=== PATIENT | female | born 1970 | race Hispanic/Latino ===

== ENCOUNTER → 2018-10-28 | Outpatient (CLI) | payer OTHER | END | disposition home or self-care (01) | LOC: OIH 13:35 | DX: Z13.6 Encounter for screening for cardiovascular disorders (principal) | CPT/HCPCS: 75571 ==

== ENCOUNTER 2022-01-20 13:46 | Emergency (ER) | payer BC, OTHER ==
[~2022-01-20] VITALS: Ht 162.6 cm; Wt 61.2 kg
[2022-01-20 13:47] VITALS: BP 144/71
[2022-01-20 14:23] LABS: BASOPHILS % (AUTO) 0.6 % (0.0-5.0); EOSINOPHILS % (AUTO) 3.4 % (0.0-8.0); HEMATOCRIT 38.7 % (36-48); LYMPHOCYTES % (AUTO) 23.6 % (21.0-51.0); MEAN CORPUSCULAR HEMOGLOBIN 30.4 pg (27.0-33.0); MEAN CORPUSCULAR HGB CONC 33.1 g/dL (32.0-36.0); MEAN CORPUSCULAR VOLUME 91.9 fL (79-99); MONOCYTES % (AUTO) 6.1 % (3.0-13.0); NEUTROPHILS % (AUTO) 65.9 % (40.0-77.0); PLATELET COUNT (AUTO) 266 K/uL (130-400); RED BLOOD CELL COUNT(AUTO) 4.21 MIL/uL (4.00-5.50); RED CELL DISTRIBUTION WIDTH 12.5 % (11.0-15.5); WHITE BLOOD COUNT (AUTO) 5.2 K/uL (4.8-10.8)
[2022-01-20 14:35] LABS: CREATININE 0.7 mg/dL (0.5-1.5); POTASSIUM 3.5 mmol/L (3.5-5.1)
[2022-01-20 14:39] LABS: ALBUMIN 4.1 g/dL (3.5-5.0); BILIRUBIN,TOTAL 0.7 mg/dL (0.2-1.0); TOTAL PROTEIN, SERUM 7.3 g/dL (6.0-8.3)
[2022-01-20] MEDS ORDERED: IOHEXOL-350 75 ML VIAL IV ONE (15:57)
[2022-01-20] MEDS ORDERED: PANT40TA55 PO (16:52)
== END 2022-01-20 17:40 | disposition home or self-care (01) ==
LOC: EDH 13:46
DX: K21.9 Gastro-esophageal reflux disease without esophagitis (principal); Z90.710 Acquired absence of both cervix and uterus; Z98.890 Other specified postprocedural states
CPT/HCPCS: 36415; 70491; 80053; 81025; 85025; 99284; Q9967

== ENCOUNTER 2022-08-07 11:52 | Emergency (ER) | payer BC ==
[~2022-08-07] VITALS: Ht 162.6 cm; Wt 63.5 kg
[~2022-08-07 11:52] MED LIST: PANT40TA55 PO
[2022-08-07 12:04] VITALS: BP 132/84
[2022-08-07 12:32] LABS: APPEARANCE,URINE CLEAR (CLEAR); BILIRUBIN,URINE NEGATIVE (NEGATIVE); COLOR,URINE COLORLESS (YELLOW); GLUCOSE, URINE (UA) NEGATIVE (NEGATIVE); KETONES,URINE NEGATIVE (NEGATIVE); LEUKOCYTE ESTERASE ,URINE NEGATIVE Leu/uL (NEGATIVE); NITRATE,URINE NEGATIVE (NEGATIVE); OCCULT BLOOD,URINE NEGATIVE (NEGATIVE); PH,URINE 5.5 (5.0-8.0); PROTEIN,URINE NEGATIVE (NEGATIVE); UROBILINOGEN,URINE 0.2 mg/dL (0.2-1.0)
[2022-08-07 12:34] LABS: BASOPHILS % (AUTO) 0.5 % (0.0-5.0); EOSINOPHILS % (AUTO) 4.2 % (0.0-8.0); HEMATOCRIT 38.6 % (36-48); LYMPHOCYTES % (AUTO) 25.8 % (21.0-51.0); MEAN CORPUSCULAR HEMOGLOBIN 30.3 pg (27.0-33.0); MEAN CORPUSCULAR HGB CONC 33.2 g/dL (32.0-36.0); MEAN CORPUSCULAR VOLUME 91.3 fL (79-99); MONOCYTES % (AUTO) 7.3 % (3.0-13.0); NEUTROPHILS % (AUTO) 61.7 % (40.0-77.0); PLATELET COUNT (AUTO) 316 K/uL (130-400); RED BLOOD CELL COUNT(AUTO) 4.23 MIL/uL (4.00-5.50); RED CELL DISTRIBUTION WIDTH 12.8 % (11.0-15.5); WHITE BLOOD COUNT (AUTO) 5.5 K/uL (4.8-10.8)
[2022-08-07 13:02] LABS: INR 0.93 (0.85-1.15); PROTHROMBIN TIME 9.6 SEC (9.6-11.6)
[2022-08-07 13:13] LABS: CREATININE 0.7 mg/dL (0.5-1.5); POTASSIUM 3.7 mmol/L (3.5-5.1)
[2022-08-07] MEDS: MAG/ALUM/SIMETH 30 ML UDCUP PO ONE (13:19)
[2022-08-07] MEDS: LIDOCAINE HCL 2% VISCOUS 15 ML UDCUP PO ONE (13:19)
[2022-08-07] MEDS: FAMOTIDINE 20MG TAB PO ONE (13:19)
[2022-08-07 13:23] LABS: ALBUMIN 4.2 g/dL (3.5-5.0); TOTAL PROTEIN, SERUM 7.8 g/dL (6.0-8.3)
== END 2022-08-07 14:09 | disposition home or self-care (01) ==
LOC: EDH 11:52
DX: R07.89 Other chest pain (principal); K21.9 Gastro-esophageal reflux disease without esophagitis; F41.9 Anxiety disorder, unspecified; Z79.899 Other long term (current) drug therapy; Z98.890 Other specified postprocedural states
CPT/HCPCS: 36415; 71045; 80053; 81003; 84484; 85025; 85610; 93005

== ENCOUNTER 2023-07-16 19:17 | Emergency (ER) | payer BC, OTHER ==
[~2023-07-16] VITALS: Ht 162.6 cm; Wt 67.6 kg
[2023-07-16 21:05] LABS: SARS-CoV-2, RNA, NAAT NEGATIVE SARS CoV-2 (NEGATIVE)
[2023-07-16 21:10] LABS: INFLUENZA TYPE A Negative For Type A (NEGATIVE); INFLUENZA TYPE B Negative For Type B (NEGATIVE)
[2023-07-16] MEDS ORDERED: AMOX-426 PO (21:21)
[2023-07-16 21:39] VITALS: BP 136/76; PULSE 99; RESP 18; O2SAT 97
== END 2023-07-16 21:35 | disposition home or self-care (01) ==
LOC: EDH 19:17
DX: J02.0 Streptococcal pharyngitis (principal); J45.909 Unspecified asthma, uncomplicated; Z90.710 Acquired absence of both cervix and uterus; Z20.822 Contact with and (suspected) exposure to COVID-19
CPT/HCPCS: 99283; 87635; 87804 ×2; C9803

== ENCOUNTER 2023-08-05 09:19 | Emergency (ER) | payer OTHER ==
[~2023-08-05] VITALS: Ht 162.6 cm; Wt 68.5 kg
[~2023-08-05 09:19] MED LIST changes: +AMOX-426 PO
[2023-08-05 09:20] VITALS: BP 136/83
[2023-08-05] MEDS ORDERED: DEXAMETHASONE SOD PHOSPHATE 4 MG/ML 1ML VIAL IM ONE (10:00)
[2023-08-05] MEDS ORDERED: BUDESONIDE 0.5 MG/2 ML INH IH ONE (10:08)
[2023-08-05 10:15] VITALS: PULSE 82; RESP 20
[2023-08-05] MEDS ORDERED: BUDE0.5A8 IH (11:28)
[2023-08-05] MEDS ORDERED: BENZ-39 PO (11:28)
[2023-08-05] MEDS ORDERED: BUDESONIDE 0.5 MG/2 ML INH IH SCH (18:00)
== END 2023-08-05 11:46 | disposition home or self-care (01) ==
LOC: EDH 09:19
DX: R05.9 Cough, unspecified (principal); J45.909 Unspecified asthma, uncomplicated; K21.9 Gastro-esophageal reflux disease without esophagitis; Z79.899 Other long term (current) drug therapy; Z98.890 Other specified postprocedural states; Z90.710 Acquired absence of both cervix and uterus
CPT/HCPCS: 99283; 71045; 96372; 94640; J1100